=== PATIENT | male | born 1990 | race African-American/Black ===

== ENCOUNTER 2018-06-23 13:32 | Inpatient (IN) ==
--- NOTE | 2018-06-23 15:16 | ED ---
HPI General Chief Complaint: Psychiatric Symptoms Stated Complaint: Psych eval / DBPD Time Seen by Provider: 06/23/18 14:08 Source: patient Mode of arrival: wheelchair Limitations: no limitations History of Present Illness HPI Narrative: 27-year-old male with a history of schizophrenia presents to the emergency room for evaluation of auditory hallucinations that are telling him to kill himself by "running in front of traffic." Patient states he is homeless and out of his medication. He is from [place] and came here 2 days ago. He denies any visual hallucinations. He reports occasional marijuana and alcohol use but denies any other illicit drug use. States he has been out of his medications for 2-3 weeks because he is homeless and does not have follow- up. Since he has been out of his medications, the hallucinations have been worsening. He denies any homicidal ideation. Denies any other medical problems other than phantom limb pain. Denies any medical complaints at this time. MD complaint: suicidal ideation and feels depressed Onset (ago): day(s) Duration: intermittent History of same: Yes Relieving factors: none Exacerbating factors: none Context: not taking psychiatric medications Associated psychiatric symptoms: auditory hallucinations Associated symptoms: denies other symptoms Treatments prior to arrival: placed on mental health hold If self harm: admits thoughts of self harm and has plan Related Data Home Medications Medication Instructions Recorded Confirmed benztropine [Cogentin] 1 mg IM BID 06/23/18 06/23/18 haloperidol 1 mg PO TID 06/23/18 06/23/18 Allergies Allergy/AdvReac Type Severity Reaction Status Date / Time diphenhydramine Allergy Swelling Verified 06/23/18 13:50 [From Benadryl] of Lip/Tongue/Throat hydroxyzine [From Vistaril] Allergy Swelling Verified 06/23/18 13:50 of Lip/Tongue/Throat Review of Systems ROS Unobtainable All other systems reviewed negative except as stated in HPI PMFSH Social History Social History Substance History: Active Abuse Second Hand Smoke Exposure: Yes Smoking Status: Current every day smoker Tobacco Type: Cigarettes How Often Do You Have a Drink Containing Alcohol: Never Recent Travel in [facility] within the Last 8 Weeks: No Recent Out of Country Travel within the Last 8 Weeks: No Substance Abuse Detail Marijuana: Substance Use Status: Active Route Used Substance Abuse: Inhalation Last Used: 06/15/18 Immunization History Tetanus Immunization: Unsure Hx Influenza Vaccine This Season: No Exam Narrative Exam Narrative: GENERAL: Well-nourished, well-developed male in no acute distress. Afebrile. Ambulatory. SKIN: Focused skin assessment warm/dry. HEAD: Normocephalic. EYES: No scleral icterus. No injection or drainage. NECK: Supple, trachea midline. No JVD or lymphadenopathy. CARDIOVASCULAR: Regular rate and rhythm without murmurs, gallops, or rubs. RESPIRATORY: Breath sounds equal bilaterally. No accessory muscle use. PSYCHIATRIC: No delusional thought processes. No hallucinations. Pressured speech. Labile mood. Course Initial Documented Vital Signs Temperature 98.5 F 06/23/18 14:01 Pulse Rate 78 06/23/18 14:01 Respiratory Rate 18 06/23/18 14:01 Blood Pressure 136/79 06/23/18 14:01 Pulse Oximetry 100 06/23/18 14:01 Last Documented Vital Signs Temperature 97.7 F 06/24/18 06:16 Pulse Rate 69 06/24/18 06:16 Respiratory Rate 17 06/24/18 06:16 Blood Pressure 106/66 06/24/18 06:16 Pulse Oximetry 99 06/24/18 06:[address] [facility] Narrative Medical decision making narrative: 27-year-old male presents to the emergency room for evaluation auditory hallucinations that are telling him to "run in front of traffic." Patient has a slightly labile mood and pressured speech but is calm and cooperative. Basic labs are unremarkable. Patient is medically cleared for psychiatric evaluation. Patient seen by psychiatric nurse practitioner with plans for admission. While awaiting for a bed on the locked inpatient unit, patient became volatile and a flight risk, trying to wheel out the ambulance doors and get away. Chemical and physical restraints were used for the safety of patient and staff. Differential Diagnosis Differential Diagnosis: Schizophrenia, acute psychosis, medication noncompliance Lab Data Result diagrams: 06/23/18 14:45 06/23/18 14:45 Lab Results 06/23/18 06/23/18 06/23/18 Range/Units 14:45 14:45 15:15 WBC 5.6 (4.0-11.0) th/mm3 RBC 4.69 (4.50-5.90) mil/mm3 Hgb 14.0 (13.0-17.0) gm/dL Hct 42.5 (39.0-51.0) % MCV 90.6 (80.0-100.0) fL MCH 29.8 (27.0-34.0) pg MCHC 32.9 (32.0-36.0) % RDW 13.2 (11.6-17.2) % Plt Count 221 (150-450) th/mm3 MPV 8.0 (7.0-11.0) fL Neut % (Auto) 37.2 (16.0-70.0) % Lymph % (Auto) 55.0 H (9.0-44.0) % [place] % (Auto) 6.1 (0.0-8.0) % Eos % (Auto) 1.2 (0.0-4.0) % Baso % (Auto) 0.5 (0.0-2.0) % Neut # (Auto) 2.1 (1.8-7.7) th/mm3 Lymph # (Auto) 3.1 (1.0-4.8) th/mm3 [place] # (Auto) 0.3 (0.0-0.9) th/mm3 Eos # (Auto) 0.1 (0.0-0.4) th/mm3 Baso # (Auto) 0.0 (0.0-0.2) th/mm3 WBC Differential . Differential Comment Auto diff final Sodium 144 (136-145) meq/L Potassium 3.7 (3.5-5.1) meq/L Chloride 110 H (98-107) meq/L Carbon Dioxide 26.8 (21.0-32.0) meq/L Anion Gap 7 (5-15) meq/L BUN 9 (7-18) mg/dL Creatinine 0.86 (0.60-1.30) mg/dL Estimated GFR Greater than 89 (>89) mL/min Random Glucose 75 (74-106) mg/dL Calcium 8.5 (8.5-10.1) mg/dL Total Bilirubin 0.3 (0.2-1.0) mg/dL AST 15 (15-37) U/L ALT 15 (12-78) U/L Alkaline Phosphatase 61 (45-117) U/L Total Protein 6.6 (6.4-8.2) g/dL Albumin 3.2 L (3.4-5.0) g/dL TSH 0.374 (0.358-3.740) uIU/mL Urine Opiates Screen Neg (Neg) Ur Barbiturates Screen Neg (Neg) Ur Amphetamines Screen Neg (Neg) U Benzodiazepines Scrn Neg (Neg) Urine Cocaine Screen Neg (Neg) U Cannabinoids Screen Pos H (Neg) Serum Alcohol Less than 3 (0-5) mg/dL Discharge Plan Discharge Disposition Patient Disposition: 30 Still Patient Discharge Condition Condition: Stable Physicians Team ED Provider: Shannon Harper ED Midlevel Provider: Torri Stephens Primary Care Provider: Primary Care Ama Richmond Attending Provider: Miles Chris Discharge Interventions Interventions: ED Discharge Assessment Last Done: 06/23/18 21:26 Status ED Status: Left Department Discharge Information Discharge Date/Time: 06/23/18 21:28
[2018-06-23 15:43] LABS: Amphetamine Screen,Urine Neg (Neg); Barbiturate Screen,Urine Neg (Neg); Cannabinoid Screen,Urine Pos (Neg); Cocaine Screen,Urine Neg (Neg)
[2018-06-23 15:48] LABS: Opiate Screen,Urine Neg (Neg)
[2018-06-23 15:53] LABS: Baso % (Auto) 0.5 % (0.0-2.0); Eos # (Auto) 0.1 th/mm3 (0.0-0.4); Eos % (Auto) 1.2 % (0.0-4.0); Hematocrit 42.5 % (39.0-51.0); Lymph # (Auto) 3.1 th/mm3 (1.0-4.8); Mean Corpuscular HGB Conc 32.9 % (32.0-36.0); Mean Corpuscular Hemoglobin 29.8 pg (27.0-34.0); Mean Corpuscular Volume 90.6 fL (80.0-100.0); Mono # (Auto) 0.3 th/mm3 (0.0-0.9); Mono % (Auto) 6.1 % (0.0-8.0); Neut # (Auto) 2.1 th/mm3 (1.8-7.7); Neut % (Auto) 37.2 % (16.0-70.0); Platelet Count 221 th/mm3 (150-450); Red Blood Count 4.69 mil/mm3 (4.50-5.90); Red Cell Distribution Width 13.2 % (11.6-17.2); White Blood Count 5.6 th/mm3 (4.0-11.0)
[2018-06-23 16:01] LABS: Alanine Aminotransferase 15 U/L (12-78); Albumin 3.2 g/dL (3.4-5.0); Anion Gap 7 meq/L (5-15); Aspartate Aminotransferase 15 U/L (15-37); Blood Urea Nitrogen 9 mg/dL (7-18); Calcium 8.5 mg/dL (8.5-10.1); Carbon Dioxide 26.8 meq/L (21.0-32.0); Chloride 110 meq/L (98-107); Glomerular Filtration Rate Greater Than 89 mL/min (>89); Glucose,Random 75 mg/dL (74-106); Potassium 3.7 meq/L (3.5-5.1); Sodium 144 meq/L (136-145)
[2018-06-23 16:11] LABS: Alkaline Phosphatase 61 U/L (45-117); Thyroid Stimulating Hormone 0.374 uIU/mL (0.358-3.740); Total Protein 6.6 g/dL (6.4-8.2)
[2018-06-23] MEDS ORDERED: Aluminum/Magnesium/Simethacone Susp 30 ML UDC PO PRN (18:54)
--- NOTE | 2018-06-23 19:03 | ED ---
HPI - Psych - General Source: patient Mode of arrival: wheelchair Limitations: physical limitation (left leg above the knee amputation) - History of Present Illness Duration: intermittent Relieving factors: none Exacerbating factors: none Context: not taking psychiatric medications Associated psychiatric symptoms: auditory hallucinations (Intermittent command to harm self and others) Associated symptoms: denies other symptoms Treatments prior to arrival: placed on mental health hold - General Chief Complaint: Psychiatric Symptoms Stated Complaint: Psych eval / DBPD Time Seen by Provider: 06/23/18 14:08 - History of Present Illness HPI Narrative: This is a 27-year-old single, -Polish male who is brought to this facility under a [place] act placed by the [place] [employer] for self-reported suicidal ideation. Patient is not previously known to this facility. Reviewed electronic medical record, labs, discuss case with staff. Patient is positive for cannabinoids. Patient was found sleeping in his room he awoke to verbal stimuli. He is alert and oriented 4. His speech is clear, logical, and organized. At this point time he denies suicidal ideation at all ideation, auditory or visual hallucinations. However he does report intermittent command auditory hallucinations which direct him to harm himself and others. He states that he is from [place] and cannot explain how he ended up in [facility]. He reports that he has not taken his Cogentin or Haldol in "a couple of days" however, he is unable to provide a dosage. He states that he is treated at [facility] outpatient. He reports multiple inpatient admissions in [place]. At this time I detect no internal stimulation [place] thought blocking. I can elicit no delusional material. He advises that he is homeless. From [place] as mentioned above. States that he receives Social Security disability. He denies any previous history of suicide attempts. Although, he maintains he has been dealing with schizophrenia and auditory hallucinations on and off for "a long time now". He states that he is a "sometimes smoker", denies drinking alcohol, reports that he smokes weed occasionally. (Sheila Washington) - Related Data Home Medications Medication Instructions Recorded Confirmed benztropine [Cogentin] 1 mg IM BID 06/23/18 06/23/18 haloperidol 1 mg PO TID 06/23/18 06/23/18 Allergies Allergy/AdvReac Type Severity Reaction Status Date / Time diphenhydramine Allergy Swelling Verified 06/23/18 13:50 [From Benadryl] of Lip/Tongue/Throat hydroxyzine [From Vistaril] Allergy Swelling Verified 06/23/18 13:50 of Lip/Tongue/Throat PMFSH - History History Provided By: Patient - Medical History Medical History: Medical History (Last Reviewed 06/23/18 @ 18:56 by NITHYA Pfeiffer) Patient denies medical problems - Surgical History Surgical History: Surgical History (Last Reviewed 06/23/18 @ 18:56 by NITHYA Pfeiffer) Amputation of leg - Tobacco History Second Hand Smoke Exposure: Yes Tobacco Use In Past 30 Days: Yes (2 CIGARETTES/DAY) Smoking Status: Current every day smoker Tobacco Type: Cigarettes - Alcohol History How Often Do You Have a Drink Containing Alcohol: Never - Substance Use History Substance History: Active Abuse - Substance Use Type Marijuana Type: Once a week when has the money together per pt. Status: Active Route Used: Inhalation Last Used: 06/15/18 - Travel History Recent Travel in the [facility] Within the Last 8 Weeks: No Recent Travel Out of the Country Within the Last 8 Weeks: No - Immunization History Tetanus Immunization: Unsure Hx Influenza Vaccine This Season: No Psychiatric History - Psychiatric History Psychiatric Treatment History: History of Psychiatric Treatment, History of Hospitalization in a Psychiatric Facility, History of Community Mental Health Treatment History of Inpatient Treatment: Yes Firearms in Home: No - Legal History Reports that he has a court date in [place] next . (Sheila Washington) - Family Psychiatric History Denies (Sheila Washington) Physical Exam - General Limitations: no limitations Mental Status Examination Appearance: Disheveled Consciousness: Alert Orientation: x4 Motor Activity: Other (Wheelchair) Speech: Unremarkable Language: Adequate Fund of Knowledge: Adequate Attention and Concentration: Adequate Memory: Unremarkable Mood: Appropriate, Good Affect: Appropriate, Euthymic Thought Process & Associations: Intact, Logical Thought Content: Appropriate Hallucination Type: Auditory (Reports intermittent command) Delusion Type: None Suicidal Ideation: No Suicidal Plan: No Suicidal Intention: No Homicidal Ideation: No Homicidal Plan: No Homicidal Intention: No Insight: Fair Judgment: Impulsive Initial Documented Vital Signs Temperature 98.5 F 06/23/18 14:01 Pulse Rate 78 06/23/18 14:01 Respiratory Rate 18 06/23/18 14:01 Blood Pressure 136/79 06/23/18 14:01 Pulse Oximetry 100 06/23/18 14:01 Last Documented Vital Signs Temperature 98.5 F 06/23/18 14:01 Pulse Rate 75 06/23/18 18:43 Respiratory Rate 20 06/23/18 18:43 Blood Pressure 132/72 06/23/18 18:43 Pulse Oximetry 100 06/23/18 18:43 MDM - Psych - Lab Data Result diagrams: 06/23/18 14:45 06/23/18 14:45 - MDM Narrative Medical decision making narrative: Patient was appropriate throughout the interview. He endorses intermittent command auditory hallucinations which direct him to harm himself or others. Admitting him to a locked psychiatric inpatient unit for medication stabilization as deemed necessary. (Sheila Washington) - Lab Data Lab Results 06/23/18 06/23/18 06/23/18 Range/Units 14:45 14:45 15:15 WBC 5.6 (4.0-11.0) th/mm3 RBC 4.69 (4.50-5.90) mil/mm3 Hgb 14.0 (13.0-17.0) gm/dL Hct 42.5 (39.0-51.0) % MCV 90.6 (80.0-100.0) fL MCH 29.8 (27.0-34.0) pg MCHC 32.9 (32.0-36.0) % RDW 13.2 (11.6-17.2) % Plt Count 221 (150-450) th/mm3 MPV 8.0 (7.0-11.0) fL Neut % (Auto) 37.2 (16.0-70.0) % Lymph % (Auto) 55.0 H (9.0-44.0) % [place] % (Auto) 6.1 (0.0-8.0) % Eos % (Auto) 1.2 (0.0-4.0) % Baso % (Auto) 0.5 (0.0-2.0) % Neut # (Auto) 2.1 (1.8-7.7) th/mm3 Lymph # (Auto) 3.1 (1.0-4.8) th/mm3 [place] # (Auto) 0.3 (0.0-0.9) th/mm3 Eos # (Auto) 0.1 (0.0-0.4) th/mm3 Baso # (Auto) 0.0 (0.0-0.2) th/mm3 WBC Differential . Differential Comment Auto diff final Sodium 144 (136-145) meq/L Potassium 3.7 (3.5-5.1) meq/L Chloride 110 H (98-107) meq/L Carbon Dioxide 26.8 (21.0-32.0) meq/L Anion Gap 7 (5-15) meq/L BUN 9 (7-18) mg/dL Creatinine 0.86 (0.60-1.30) mg/dL Estimated GFR Greater than 89 (>89) mL/min Random Glucose 75 (74-106) mg/dL Calcium 8.5 (8.5-10.1) mg/dL Total Bilirubin 0.3 (0.2-1.0) mg/dL AST 15 (15-37) U/L ALT 15 (12-78) U/L Alkaline Phosphatase 61 (45-117) U/L Total Protein 6.6 (6.4-8.2) g/dL Albumin 3.2 L (3.4-5.0) g/dL TSH 0.374 (0.358-3.740) uIU/mL Urine Opiates Screen Neg (Neg) Ur Barbiturates Screen Neg (Neg) Ur Amphetamines Screen Neg (Neg) U Benzodiazepines Scrn Neg (Neg) Urine Cocaine Screen Neg (Neg) U Cannabinoids Screen Pos H (Neg) Serum Alcohol Less than 3 (0-5) mg/dL
[2018-06-24] MEDS: Haloperidol 5 MG Tablet PO SCH ×2 (16:49→21:04)
--- NOTE | 2018-06-24 18:23 | P.HPPSY ---
Provisional Diagnosis Admission Date: June 23, 2018 18:54 [place].: Schizophrenia Competence Certification of Person's Competence To Provide Express and Informed Consent I have personally examined Bill Najera IV, a person being served at [facility] on, June 24, 2018 1814. Express and informed consent means consent voluntarily given in writing, by a competent person, after sufficient explanation and disclosure of the subject matter involved to enable the person to make a knowing and willful decision without any element of force, fraud, deceit, duress, or other form of constraint or coercion. This person is 18 years of age or older, is not now known to be incompetent to consent to treatment with a guardian advocate, and does not have a health care surrogate or proxy currently making medical treatment decisions. I have found this person to be one of the following: [xxx] Competent to provide express and informed consent, as defined above, for voluntary admission to this facility and is competent to provide express and informed consent for treatment. He/she has the consistent capacity to make well reasoned, willful, and knowing decisions concerning his or her medical or mental health treatment. The person fully and consistently understands the purpose of the admission for examination/placement and is fully capable of personally exercising all rights assured under [place] [] Incompetent to provide express and informed consent to voluntary admission, and this is incompetent to provide express and informed consent to treatment. The person must be transferred to involuntary status and a petition for a guardian advocate filed with the Circuit Court. [] Refusing to provide express and informed consent to voluntary admission but is competent to provide express and informed consent for treatment. The person must be discharged or transferred to involuntary status. Form shall be completed within 24 hours of a person's arrival at the receiving facility and filed in the clinical record of each person: 1. Admitted on a voluntary basis 2. Permitted to provide express and informed consent to his/her own treatment 3. Allowed to transfer from involuntary to voluntary status 4. Prior to permitting a person to consent to his or her own treatment after having been previously found incompetent to consent to treatment. History of Present Illness Capacity: Has capacity History of Present Illness: Patient is a 27-year-old -[place] man, homeless, unemployed on SSI, single no children, reports living [facility] in [place], with a past psychiatric history of schizophrenia, multiple psychiatric admissions, denies any previous suicide attempt or self-injurious behavior, with a substance use history significant for occasional marijuana use, denies any past medical history who was brought into the ED as a transfer from a different hospital due to being under Davis act for suicide ideations and command auditory hallucinations in the context of noncompliance with medications which patient was admitted to the inpatient psychiatry for further evaluation and management. As per chart patient was having command auditory hallucinations to kill himself, "run into traffic", reports being homeless, originally from [place] but denying any visual who was. Patient was found in wheelchair as patient has left lower extremity amputation, noted to be irritable throughout interview requesting/demanding discharge stating that he is not suicidal or homicidal and denies any auditory hallucinations. Patient states that he woke up feeling depressed yesterday and had worsening of this depression since his girlfriend had due to an overdose several months ago. Patient reports that recently he has been having no difficulty with sleeping, although noted decreased appetite, no change in energy or concentration and denies feeling helpless or hopeless. Patient denies any suicide ideation at this time but did report having suicide ideation for 3 or 4 days prior to this admission, missing his brother who had several years ago. Patient did endorse auditory hallucinations yesterday but denies any today. Patient reports that his outpatient psychiatrist Dr. Cummings in last had been seen by this physician "been a while". Family psychiatric history: Patient reports no psychiatric diagnoses in the family but his father is diabetic, no suicides in the family. Past psychiatric history: Previous psychiatric diagnoses of schizophrenia, multiple psychiatric admissions, denies suicide attempt, reports last hospitalization was 1 month ago due to Davis act which she had endorse suicide ideations. Patient denies any history of self-injurious behavior or history of abuse. Patient reports having outpatient follow-up at [facility] near [place], reports previous psychiatric medications to include Haldol and Cogentin which she reports last taken 4 days ago. Substance use history: Marijuana use, once per month, denies any other drug use , reports occasional tobacco use and no alcohol use. Past medical history: Denies been noted with left lower extremity amputation Allergies: Benadryl and Atarax Social history: Single, no children, homeless, unemployed on SSI, reports staying [facility] in [place]. - Inpatient Certification I certify that the inpatient services were ordered in accordance with Medicare regulations governing the order. This includes certification that hospital inpatient services are reasonable and necessary and in the case of services not specified as inpatient-only under 42 CFR 419.22(n), that they are appropriately provided as inpatient services in accordance to with the 2-midnight benchmark under 43 CFR 412.3(e) I certify that inpatient psychiatric hospital services are medically necessary. Evaluation and treatment and/or diagnostic testing are expected to improve the patient's condition. The patient needs on a daily basis, active treatment furnished directly by or requiring the supervision of inpatient psychiatric facility personnel. Estimated Total Length of Stay (Days): 3 Plans for Post Hospital Care: Home Review of Systems All other systems reviewed negative except as stated in [facility] - History History Provided By: Patient, Medical Record - Medical History Medical History: Medical History (Last Reviewed 06/23/18 @ 18:56 by NITHYA Pfeiffer) Patient denies medical problems - Surgical History Surgical History: Surgical History (Last Reviewed 06/23/18 @ 18:56 by NITHYA Pfeiffer) Amputation of leg - Tobacco History Second Hand Smoke Exposure: Yes Tobacco Use In Past 30 Days: Yes (2 CIGARETTES/DAY) Smoking Status: Current every day smoker Tobacco Type: Cigarettes - Alcohol History How Often Do You Have a Drink Containing Alcohol: Never - Substance Use History Substance History: No History of Abuse - Substance Use Type Marijuana Type: Once a week when has the money together per pt. Status: Active Route Used: Inhalation Last Used: 06/15/18 - Travel History Recent Travel in the [place] Within the Last 8 Weeks: No Recent Travel Out of the Country Within the Last 8 Weeks: No - Immunization History Tetanus Immunization: Unsure Hx Influenza Vaccine This Season: No Quality Measures - Psychiatric History Psychological trauma history: Denies Violence risk to others in the last 6 months: Low Violence risk to self in the last 6 months: Elevated due to recent report of suicide ideation. - Substance Abuse History Drug or alcohol use in the past 12 months: Occasional marijuana use - Patient Strengths Patient's strengths (minimum of 2): Verbal and communicative Medications and Allergies Active Medications: Active Medications Al Hydrox/Mg Hydrox/Simethicone (Mag-Al Plus Susp Liq) 30 ml PO Q6H PRN PRN Reason: DYSPEPSIA Benztropine Mesylate (Cogentin) 0.5 mg PO BID [facility] Last Admin: 06/24/18 16:49 Dose: 0.5 mg Haloperidol (Haldol) 5 mg PO BID [facility] Last Admin: 06/24/18 16:49 Dose: 5 mg Allergies Allergy/AdvReac Type Severity Reaction Status Date / Time diphenhydramine Allergy Swelling Verified 06/23/18 13:50 [From Benadryl] of Lip/Tongue/Throat hydroxyzine [From Vistaril] Allergy Swelling Verified 06/23/18 13:50 of Lip/Tongue/Throat Home Medications Medication Instructions Recorded Confirmed Type benztropine [Cogentin] 1 mg IM BID 06/23/18 06/23/18 History haloperidol 1 mg PO TID 06/23/18 06/23/18 History Results - Labs CBC & Chem 7: 06/23/18 14:45 06/23/18 14:45 Exam Vital signs: Vital Signs 06/23/18 18:43 06/24/18 00:00 06/24/18 06:16 Temperature 98 F 97.7 F Pulse Rate 75 70 69 Respiratory Rate 20 17 17 Blood Pressure 132/72 133/79 106/66 Pulse Oximetry 100 100 99 06/24/18 17:48 Temperature 98.5 F Pulse Rate 58 L Respiratory Rate 17 Blood Pressure 134/75 Pulse Oximetry 98 Intake & Output 06/23/18 06/24/18 06/24/18 18:59 06:59 18:59 Weight 68.039 kg 68.039 kg Other: Weight On Admission 68.039 kg Narrative: Patient not noted to be in acute distress, no gross motor abnormalities, noted with left lower extremity amputation, no tremors or EPS, no noted psychomotor retardation or agitation. - Constitutional no acute distress, disheveled Mental Status Examination Appearance: Disheveled Consciousness: Alert Orientation: x4 Motor Activity: Other (Wheelchair) Speech: Unremarkable Language: Adequate Fund of Knowledge: Adequate Attention and Concentration: Adequate Memory: Unremarkable Mood: Irritable (Denies today) Affect: Irritable Thought Process & Associations: Intact, Logical Thought Content: Appropriate Hallucination Type: Auditory (Reports intermittent command) Delusion Type: None Suicidal Ideation: Yes Suicidal Plan: No Suicidal Intention: No Homicidal Ideation: No Homicidal Plan: No Homicidal Intention: No Insight: Fair Judgment: Impulsive Assessment and Plan - Assessment (1) Schizophrenia Code(s): F20.9 - Schizophrenia, unspecified Status: Acute - Plan Plan: Estimated LOS: [3] days Patient is a 27-year-old -[place] man, who carries a diagnosis schizophrenia, homeless, unemployed on SSI, previous psychiatric admissions, denies any previous suicide attempts, with occasional marijuana use who was admitted to the inpatient psychiatry due to suicide ideations and command auditory hallucinations to kill himself which patient agreed to voluntary admission for observation and safety as well as for stabilization. We will resume patient on Haldol 5 mg p.o. twice daily along with Cogentin 0.5 mg p.o. twice daily. We will continue to monitor mood and behavior. Discharge planning in progress. Justification for Continued Inpatient Stay: At risk for further decompensation if at lower level of care
[2018-06-25] MEDS: Haloperidol 5 MG Tablet PO SCH (08:39)
--- NOTE | 2018-06-25 22:44 | P.DSPSY ---
Psychiatry Discharge Summary Inpatient Psychiatric care?: Yes Advance Directives: No Mental Health Advance Directive: No Health Care Proxy: No - Admission Admission Date: June 23, 2018 18:54 - Admission Diagnosis (1) Schizophrenia Code(s): F20.9 - Schizophrenia, unspecified Brief History: Patient is a 27-year-old -[place]ian man, homeless, unemployed on SSI, single no children, reports living homeless [facility] in [place], with a past psychiatric history of schizophrenia, multiple psychiatric admissions, denies any previous suicide attempt or self-injurious behavior, with a substance use history significant for occasional marijuana use, denies any past medical history who was brought into the ED as a transfer from a different hospital due to being under Davis act for suicide ideations and command auditory hallucinations in the context of noncompliance with medications which patient was admitted to the inpatient psychiatry for further evaluation and management. As per chart patient was having command auditory hallucinations to kill himself, "run into traffic", reports being homeless, originally from [place] but denying any visual who was. Patient was found in wheelchair as patient has left lower extremity amputation, noted to be irritable throughout interview requesting/demanding discharge stating that he is not suicidal or homicidal and denies any auditory hallucinations. Patient states that he woke up feeling depressed yesterday and had worsening of this depression since his girlfriend had due to an overdose several months ago. Patient reports that recently he has been having no difficulty with sleeping, although noted decreased appetite, no change in energy or concentration and denies feeling helpless or hopeless. Patient denies any suicide ideation at this time but did report having suicide ideation for 3 or 4 days prior to this admission, missing his brother who had several years ago. Patient did endorse auditory hallucinations yesterday but denies any today. Patient reports that his outpatient psychiatrist Dr. Cummings in last had been seen by this physician "been a while". Family psychiatric history: Patient reports no psychiatric diagnoses in the family but his father is diabetic, no suicides in the family. Past psychiatric history: Previous psychiatric diagnoses of schizophrenia, multiple psychiatric admissions, denies suicide attempt, reports last hospitalization was 1 month ago due to Davis act which she had endorse suicide ideations. Patient denies any history of self-injurious behavior or history of abuse. Patient reports having outpatient follow-up at the [facility] near [place], reports previous psychiatric medications to include Haldol and Cogentin which she reports last taken 4 days ago. Substance use history: Marijuana use, once per month, denies any other drug use , reports occasional tobacco use and no alcohol use. Past medical history: Denies been noted with left lower extremity amputation Allergies: Benadryl and Atarax Social history: Single, no children, homeless, unemployed on [facility], reports staying at [facility] in [place]. Tobacco Use In Past 30 Days: Yes (2 CIGARETTES/DAY) How Often Do You Have a Drink Containing Alcohol: Never Hospital Course: Patient is a 27-year-old -[place]ian man, homeless, unemployed on SSI, single no children, reports living homeless [facility] in [place], with a past psychiatric history of schizophrenia, multiple psychiatric admissions, denies any previous suicide attempt or self-injurious behavior, with a substance use history significant for occasional marijuana use, denies any past medical history who was brought into the ED as a transfer from a different hospital due to being under Davis act for suicide ideations and command auditory hallucinations in the context of noncompliance with medications which patient was admitted to the inpatient psychiatry unit for further evaluation and management. Patient continued on Haldol 5mg PO BID and benztropine 0.5mg PO BID and continued on medications for chronic medical conditions which he tolerated well with no notable adverse drug reactions. Patient was noted with improvement in mood although initially irritable having been retained for observation, noted to have denied having any suicidal or homicidal ideations since admission. He was observed by staff to not have had any behavioral disturbances, not having made any suicidal or homicidal statements and maintained stable mood through admission and was noted to participate with staff adequately. Patient was noted to participate in self care, engaging with staff and maintaining adequate hygiene. Patient reported feeling more hopeful, future oriented and motivated to continue to his treatment and continue with outpatient follow up. Treatment team was able to set up outpatient follow up appointments which the patient can continue current medication regimen. Upon discharge patient stated that he was feeling great, reported feeling well with the treatment, as well as motivation to continue recommendations and denied any SI, HI, perceptual disturbances or delusions. Weighing the acute, chronic, and protective factors and based on the available evidence, I hand compositor to a reasonable degree of medical certainty that the patient is at low imminent risk of harm to self or others from a mental illness as defined under the Davis act and his level of function is adequate as observed on the unit for planned level of outpatient care. Patient was counseled regarding warning signs for need to return to the psychiatric emergency room as part of a general safety plan. Patient advised to call 911 or go nearest ED in case of emergency. Patient agreed with plan. - Discharge Discharge Date: 06/25/18 - Discharge Diagnosis (1) Schizophrenia Code(s): F20.9 - Schizophrenia, unspecified Status: Acute Discharge Disposition: Home - Discharge Instructions Discharge Diet: Heart Healthy Diet Activities You Can Perform: Weight Bearing As Tolerat - Discharge Time > 30 minutes Mental Status Examination Appearance: Appropriate Consciousness: Alert Orientation: x4 Motor Activity: Other (Wheelchair) Speech: Unremarkable Language: Adequate Fund of Knowledge: Adequate Attention and Concentration: Adequate Memory: Unremarkable Mood: Irritable (Denies today) Affect: Irritable Thought Process & Associations: Intact, Logical Thought Content: Appropriate Hallucination Type: None Delusion Type: None Suicidal Ideation: No Suicidal Plan: No Suicidal Intention: No Homicidal Ideation: No Homicidal Plan: No Homicidal Intention: No Insight: Fair Judgment: Impulsive Discharge/Advance Care Plan - Results Vital Signs: Last Vital Signs Temp 97.2 F L 06/25/18 06:17 Pulse 50 L 06/25/18 06:17 Resp 16 06/25/18 06:17 BP 106/62 06/25/18 06:17 Pulse Ox 99 06/25/18 06:17 Lab Results: Laboratory Results TSH 0.374 uIU/mL (0.358-3.740) 06/23/18 14:45 Summary of Procedures: none Pending Results: None - Medications Number of antipsychotic medications at discharge: 1 - Discharge Care Plan Goals to Promote Your Health: * To prevent worsening of your condition and complications * To maintain your health at the optimal level Directions to Meet Your Goals: Take your medications as prescribed Follow your dietary instruction Follow activity as directed Keep your appointments as scheduled Take your immunizations and boosters as scheduled If your symptoms worsen call your PCP, if no PCP go to Urgent Care Center or Emergency Room For 15/06 questions related to your inpatient stay or results of tests pending at discharge, please contact Dr. Miles Chris MD at Smoking is Dangerous to Your Health. Avoid second hand smoking
== END 2018-06-25 18:30 | disposition home or self-care (01) ==
LOC: NEPD 13:32 → NEDA 18:54 → H270 20:56
PROVIDERS: ADMIT Student in an Organized Health Care Education/Training Program; ATTEND Student in an Organized Health Care Education/Training Program